=== PATIENT | male | born 1970 | race Caucasian/White ===

== ENCOUNTER 2017-09-29 14:44 | Inpatient (IN) | payer OTHER ==
[2017-09-29] MEDS ORDERED: ceFAZolin IN SWFI 2 GM/20 ML SYRINGE IVP STA (14:53)
[2017-09-29] MEDS ORDERED: DIPH,PERTUS(ACELL)TETVAC-LF 0.5 ML VIAL IM ONE (14:53)
--- NOTE | 2017-09-29 15:15 | XR ---
EXAMINATION TYPE: XR ankle limited RT DATE OF EXAM: 09/29/2017 CLINICAL HISTORY: Twisting injury with pain. Open fracture per order. TECHNIQUE: Frontal and lateral images of the right ankle are obtained. COMPARISON: None. FINDINGS: There is acute comminuted displaced fracture distal fibular diaphysis with several small o ssific fracture fragments. Distal fracture fragment is impacted and posteriorly displaced with abnorm al lateral angulation. There is additional comminuted displaced fracture through the distal tibial diaphysis with slight pos terior displacement as well as lateral and posterior angulation of the distal fracture fragment. The ankle mortise appears within normal limits. Focus of air near level of lateral malleolus is felt present on frontal view. IMPRESSION: There are acute displaced comminuted fractures distal diaphysis of right tibia and fibul a. (Initial encounter closed type post traumatic fracture)
--- NOTE | 2017-09-29 15:30 | ED ---
Lower Extremity Injury HPI - General Chief Complaint: Extremity Injury, Lower Stated Complaint: [facility] - rt ankle injury Time Seen by Provider: 09/29/17 14:46 Source: patient, EMS, RN notes reviewed Mode of arrival: EMS Limitations: no limitations - History of Present Illness Initial Comments: 47-year-old male presented emergency from chief complaint of right leg injury. Patient states she was pulling on a abimael states that it slipped causing his leg to twist and he felt a snap of his leg. Patient was noted to have an open fracture to his leg. States that there was some bleeding. Patient states pain is controlled after pain meds given by EMS. Patient is unsure when his last tetanus was. Denies any other injuries. - Related Data Home Medications Medication Instructions Recorded Confirmed No Known Home Medications 09/29/17 09/29/17 Allergies Allergy/AdvReac Type Severity Reaction Status Date / Time No Known Allergies Allergy Verified 09/29/17 14:55 Review of Systems ROS Statement: Those systems with pertinent positive or pertinent negative responses have been documented in the HPI. ROS Other: All systems not noted in ROS Statement are negative. Past Medical History Past Medical History: No Reported History History of Any Multi-Drug Resistant Organisms: None Reported Past Surgical History: No Surgical Hx Reported Past Psychological History: No Psychological Hx Reported Smoking Status: Current every day smoker Past Alcohol Use History: None Reported Past Drug Use History: None Reported General Exam Limitations: no limitations General appearance: alert, in no apparent distress Respiratory exam: Present: normal lung sounds bilaterally. Absent: respiratory distress, wheezes, rales, rhonchi, stridor Cardiovascular Exam: Present: regular rate, normal rhythm, normal heart sounds. Absent: systolic murmur, diastolic murmur, rubs, gallop, clicks Extremities exam: Present: other (Right lower extremity there is deformity noted , distal pulses present, there is a open wound on the anterior aspect of the lower leg there is mild bleeding noted) Course Vital Signs 09/29/17 14:52 Temperature 99.3 F Pulse Rate 99 Respiratory 18 Rate Blood Pressure 164/63 O2 Sat by Pulse 98 Oximetry Procedures - Orthopedic Splinting/Casting Injury #1 Side: right Lower Extremity Injury Location: short leg, ankle Lower Extremity Immobilizer: posterior splint, synthetic pre-padded splint Medical Decision Making - Medical Decision Making Dr. Desouza Did discuss the case with Dr. Hester in which the patient will be admitted to their service for further treatment. Disposition Clinical Impression: Open fracture of tibia and fibula Disposition: ADMITTED IP TO THIS HOSP Condition: Stable Referrals: None,Stated [Primary Care Provider] - 1-2 days
[2017-09-29] MEDS ORDERED: NALOXONE 0.4 MG/ML 1 ML VIAL IV PRN (15:38)
[2017-09-29] MEDS ORDERED: ONDANSETRON 4 MG/2 ML VIAL IVP PRN (15:38)
[2017-09-29] MEDS ORDERED: HYDROmorphone 1 MG/ML 1 ML SYRINGE IVP PRN (15:38)
--- NOTE | 2017-09-29 16:14 | P.HPOR ---
History of Present Illness H&P Date: 09/29/17 This is a 47-year-old male who presented to the with an open fracture of the right tibia. Patient states that he was pulling on a rope when the rope broke causing him to twist his right ankle. Patient was brought to the via EMS. Patient received a tetanus shot in the today. Patient denies any significant past medical history. Patient has received IV antibiotics and the right tibia has been covered with sterile gauze and splinted. Patient denies any numbness, weakness, tingling, fever/chills, shortness of breath, abdominal pain or chest pain. Review of Systems See HPI. Past Medical History Past Medical History: No Reported History History of Any Multi-Drug Resistant Organisms: None Reported Past Surgical History: No Surgical Hx Reported Past Psychological History: No Psychological Hx Reported Smoking Status: Current every day smoker Past Alcohol Use History: None Reported Past Drug Use History: None Reported Medications and Allergies Home Medications Medication Instructions Recorded Confirmed Type No Known Home Medications 09/29/17 09/29/17 History Allergies Allergy/AdvReac Type Severity Reaction Status Date / Time No Known Allergies Allergy Verified 09/29/17 14:55 Physical Examination On exam patient is lying comfortably in bed in no acute distress. Patient is alert and oriented 3. There is a small open area over the right redd. Capillary refill is normal at less than 2 seconds. Patient is able to move the toes of the right foot without pain or difficulty. Exams of the head, neck, bilateral upper extremities and left lower extremity are within normal limits. Results An x-ray of the right ankle shows displaced comminuted fractures of the distal tibia and distal fibula. Assessment and Plan (1) Open fracture of tibia and fibula Current Visit: Yes Status: Acute Code(s): S82.209B - UNSP FX SHAFT OF UNSP TIBIA, INIT FOR OPN FX TYPE I/2; S82.409B - UNSP FX SHAFT OF UNSP FIBULA, INIT FOR OPN FX TYPE I/2 SNOMED Code(s): 733578311 Plan: 1. Patient is to be NPO. 2. Continue antibiotics and pain control. 3. Maintain splint to right lower extremity. 4. I&D of open fracture and intramedullary nailing of the right tibia scheduled for today pending consent.
[2017-09-29] MEDS: HYDROmorphone 1 MG/ML 1 ML SYRINGE IVP PRN ×2 (16:50→22:46)
[2017-09-29] MEDS ORDERED: HYDROcodone/APAP 5-325MG 1 EACH TAB PO PRN (17:44)
[2017-09-29] MEDS ORDERED: DIAZEPAM 5 MG TAB PO PRN ×2 (17:44)
[2017-09-29] MEDS ORDERED: MAGNESIUM HYDROXIDE 2,400 MG/10 ML CUP PO PRN (17:44)
[2017-09-29] MEDS ORDERED: LIDOCAINE 1% INJ 10MG/ML (20 ML MDV) ONE (17:45)
[2017-09-29] MEDS ORDERED: LACTATED RINGERS 1,000 ML IV ONE ×2 (17:45→19:39)
[2017-09-29] MEDS ORDERED: PROPOFOL 10 MG/ML 20 ML VIAL IV ONE (17:45)
[2017-09-29] MEDS ORDERED: MIDAZOLAM 2 MG/2 ML VIAL ONE (17:45)
[2017-09-29] MEDS ORDERED: fentaNYL (PF) 50 MCG/ML 2 ML AMP ONE (17:45)
[2017-09-29] MEDS ORDERED: ceFAZolin 1,000 MG VIAL IVPB ONE (18:00)
[2017-09-29] MEDS ORDERED: MEPERIDINE 50 MG/ML SYRINGE IVP ONE (18:04)
[2017-09-29] MEDS ORDERED: ceFAZolin 1,000 MG in SODIUM CHLORIDE 0.9% 1,000 ML IRRIGATION ONE ×2 (18:27→19:37)
--- NOTE | 2017-09-29 20:13 | P.OP ---
Date of Procedure: 09/29/17 Preoperative Diagnosis: Grade 1 open fracture right distal tibia and fibula Postoperative Diagnosis: Grade 1 comminuted open fracture right distal tibia and fibula Procedure(s) Performed: Irrigation and debridement of the grade 1 open fracture right distal tibia. Intramedullary rodding right tibia Implants: [employer] trigen nail 10mm x 32 cm Anesthesia: spinal Surgeon: Jose Cruz Hester Blowing Weasand #1: Ama Sheth Estimated Blood Loss (ml): 100 Pathology: none sent Condition: stable Disposition: PACU Indications for Procedure: This is a 47-year-old gentleman that was pulling something at work when the lying gave way and he fell and twisted his right leg. He sustained an open right distal tibia and fibula fracture was brought to the emergency room. After evaluation of the fracture discussing the surgical and nonsurgical treatment options with him and his at length, I recommended an urgent irrigation debridement of the open wound and intramedullary rodding of the tibia. Informed consent was obtained. Operative Findings: The operative findings are consistent with a grade 1 open fracture right distal tibia and fibula. Description of Procedure: Patient was seen in the preoperative area, consent was reviewed, and the operative site was marked with a skin marker. Patient was then given 2 g of Ancef intravenously. Patient was then brought to the operating room and given a spinal anesthetic by the anesthesia department. His right lower extremity was then prepped and draped in usual sterile fashion. Mcadoo timeout was then performed which confirmed the patient's name, surgical site, ALLERGIES, and consent. Procedure began by performing an irrigation debridement of the open wound of the right distal tibia. The proximal 1 cm puncture wound on the medial aspect of the right distal tibia which was opened both proximally and distally. The area was then irrigated and a devitalized tissue was debrided. There did not appear to be any gross contamination. Next attention was then turned to placing the intramedullary melissa. An incision was made on the medial parapatellar aspect of the right knee just medial to the patellar tendon. The insertion site of the melissa was then located with an awl and confirmed with fluoroscopy. A ball-tipped guidewire was inserted and passed distally past the fracture site into the distal fragment. This was confirmed with fluoroscopy. Sequential reaming of the tibia was performed to 1- 1/2 mm over the size of the melissa. The melissa was then measured and appropriate size length and diameter melissa was inserted over the guidewire the fracture was held reduced. Guidewires then removed. 2 screws were then placed proximally using the targeting guide. Next 3 screws were then placed distally using the freehand technique. After all the screws been placed, final fluoroscopic x- rays confirmed reduction of the fracture and placement of the intramedullary melissa. The wounds were then irrigated and closed with 2-0 Vicryl followed by shirley for the skin. A well-padded and molded short-leg splint was then placed. Patient was then transferred recovery room stable condition. Asst. ROBINA Sal was required due the complexity of the surgery and the need for skilled assembler surgical garment.
[2017-09-29] MEDS: SODIUM CHLORIDE 0.9% 1,000 ML IV SCH (21:23)
[2017-09-29] MEDS: SENNOSIDES-DOCUSATE SODIUM 1 EACH TAB PO SCH (21:24)
[2017-09-29] MEDS: HYDROcodone/APAP 5-325MG 1 EACH TAB PO PRN (21:29)
[2017-09-29] MEDS: hydrOXYzine PAMOATE 25 MG CAP PO PRN (21:30)
[2017-09-29 21:49] LABS: Basophils % (A) 0 %; Eosinophils # (A) 0.3 k/uL (0-0.7); Eosinophils % (A) 2 %; HCT 46.6 % (39.0-53.0); HGB 14.7 gm/dL (13.0-17.5); Lymphocytes # (A) 2.1 k/uL (1.0-4.8); Lymphocytes % (A) 14 %; MCH 30.1 pg (25.0-35.0); MCHC 31.6 g/dL (31.0-37.0); MCV 95.4 fL (80.0-100.0); Mean Platelet Volume 7.7; Monocytes # (A) 0.8 k/uL (0-1.0); Monocytes % (A) 5 %; Neutrophils # (A) 11.4 k/uL (1.3-7.7); Neutrophils % (A) 77 %; Platelet Count 180 k/uL (150-450); RBC 4.89 m/uL (4.30-5.90); RDW 13.2 % (11.5-15.5); WBC 14.7 k/uL (3.8-10.6)
[2017-09-29 22:01] LABS: Anion Gap 5 mmol/L; Blood Urea Nitrogen 16 mg/dL (9-20); Calcium 8.7 mg/dL (8.4-10.2); Carbon Dioxide 27 mmol/L (22-30); Chloride 109 mmol/L (98-107); Glucose 104 mg/dL (74-99); Potassium 3.9 mmol/L (3.5-5.1); Sodium 141 mmol/L (137-145)
[2017-09-29] MEDS: NICOTINE 14MG/24HR PATCH TRANSDERM SCH (22:48)
--- NOTE | 2017-09-29 23:06 | XR ---
EXAMINATION TYPE: XR chest 1V portable DATE OF EXAM: 09/29/2017 COMPARISON: NONE HISTORY: Possible pneumonia. Chest pain TECHNIQUE: Single frontal view of the chest is obtained. FINDINGS: Exam is limited by the patient's size. There is no heart failure nor confluent pneumonic i nfiltrate. There is some mild linear density in the left lower lobe. Costophrenic angles are clear. B hussein thorax appears intact. IMPRESSION: Subsegmental atelectasis at the left lung base. Normal heart.
[2017-09-29] MEDS: ceFAZolin IN SWFI 2 GM/20 ML SYRINGE IVP SCH (23:20)
[2017-09-30] MEDS: HYDROmorphone 1 MG/ML 1 ML SYRINGE IVP PRN ×5 (01:28→21:52)
[2017-09-30] MEDS: HYDROcodone/APAP 5-325MG 1 EACH TAB PO PRN ×3 (02:47→21:01)
[2017-09-30] MEDS: hydrOXYzine PAMOATE 25 MG CAP PO PRN ×2 (02:48→21:02)
--- NOTE | 2017-09-30 07:36 | CONS ---
CONSULTATION REASON FOR CONSULTATION: Advice regarding increased WBC and other medical issues requested by Orthopedics. HISTORY OF PRESENT ILLNESS: This 47-year-old gentleman who was previously healthy underwent irrigation and debridement of the grade 1 open fracture of the right distal tibia with intramedullary rodding of the right tibia by Dr. Hester and the patient was admitted for further evaluation and treatment. There is no history of any fever, rigors. No history of headache, loss of consciousness or seizures. No chest pain or palpitation at this time. The patient has some shivering at this time. PAST MEDICAL HISTORY: History of nicotine dependence. No other significant illness. MEDICATIONS: None. ALLERGIES: None. FAMILY HISTORY: No history of heart disease or strokes in the family. SOCIAL HISTORY: History of smoking. No history of alcohol intake. REVIEW OF SYSTEMS: ENT: No diminished hearing or diminished. CARDIOVASCULAR SYSTEM: No angina. RESPIRATORY SYSTEM: No cough or hemoptysis. GI: No nausea or vomiting. : No dysuria. NERVOUS SYSTEM: No numbness or weakness. ALLERGY/IMMUNOLOGY: No asthma or hayfever. MUSCULOSKELETAL: As mentioned earlier. HEMATOLOGY/ONCOLOGY: No history of anemia. ENDOCRINE: No history of diabetes or hypothyroidism. CONSTITUTIONAL: As mentioned earlier. DERMATOLOGY: Negative. RHEUMATOLOGY: Negative. PSYCHIATRY: As mentioned earlier. PHYSICAL EXAMINATION: On physical exam, the patient is alert and oriented. Pulse is 103. Blood pressure is 132/81, respiration 14, temperature 97.8, pulse ox 95% on room air. HEENT: Conjunctivae normal. Oral mucosa moist. NECK: No jugular venous distention. No carotid bruit. No lymph node enlargement. CARDIOVASCULAR: S1 and S2 muffled. RESPIRATORY: Breath sounds are diminished at the bases. No rhonchi, no crackles. ABDOMEN: Soft, nontender. No mass palpable. LEGS: No edema, no swelling. Status post surgery on the right leg. NERVOUS SYSTEM: Higher functions as mentioned earlier. Moves all 4 limbs. No focal motor deficits. LYMPHATICS: No lymphadenopathy of the neck, axillae or groin. SKIN: No ulcer, rash or bleeding. LABS: WBC 14.7, hemoglobin 14.7. Sodium 141, potassium 3.9. ASSESSMENT: 1. Status post irrigation debridement of the grade 1 open fracture of the right distal tibia with intramedullary rodding of the right tibia. 2. Increased WBC. 3. History of nicotine dependence. RECOMMENDATIONS AND DISCUSSION: In this 47-year-old gentleman who presented after surgery, at this time I recommend continue the current medications, continue symptomatic treatment. I recommend to monitor closely. Follow the temperature and I would also recommend a portable chest x- ray and baseline labs and UA with micro also to just complete the workup. Otherwise further recommendations to follow. The elevated WBC could very well be reactive in nature as well. MMODL / IJN: [id number] / DONALD
--- NOTE | 2017-09-30 07:50 | FL ---
EXAMINATION TYPE: FL guidance operating room DATE OF EXAM: 09/29/2017 HISTORY: Flouroscopy time 1 minute and 32 seconds of fluoroscopy provided. IMPRESSION: 1. Fluoroscopy time.
--- NOTE | 2017-09-30 08:00 | XR ---
EXAMINATION TYPE: XR tibia fibula RT DATE OF EXAM: 09/29/2017 COMPARISON: NONE HISTORY: Postop TECHNIQUE: One view submitted FINDINGS: Postsurgical changes appear in near anatomic alignment. IMPRESSION: Postop
--- NOTE | 2017-09-30 08:41 | P.CNOR ---
History of Present Illness - HPI Consult date: 09/30/17 History of present illness: This is a 47-year-old male who is status post irrigation and debridement of grade 1 open fracture of the right distal tibia and intramedullary rodding of the right tibia. Today patient complains of soreness in the right leg, but states that his pain is controlled with pain medication. The patient's splint had been reinforced overnight due to drainage. Patient denies any fever/chills, numbness, weakness, tingling, abdominal pain, shortness of breath or chest pain. Review of Systems See HPI. Past Medical History Past Medical History: No Reported History History of Any Multi-Drug Resistant Organisms: None Reported Past Surgical History: No Surgical Hx Reported Additional Past Surgical History / Comment(s): tooth extractions Past Anesthesia/Blood Transfusion Reactions: No Reported Reaction Smoking Status: Current every day smoker - Past Family History Father Family Medical History: Diabetes Mellitus Mother Family Medical History: No Reported History Medications and Allergies Home Medications Medication Instructions Recorded Confirmed Type No Known Home Medications 09/29/17 09/29/17 History Allergies Allergy/AdvReac Type Severity Reaction Status Date / Time No Known Allergies Allergy Verified 09/29/17 14:55 Physical Examination On exam patient is alert and oriented 3 lying comfortably in bed in no acute distress. Splint is intact to the right lower extremity. Patient is able to wiggle the toes of the right foot. Capillary refill is normal at less than 2 seconds. Right lower extremity is warm and well perfused. Neurovascular status and circulatory status are intact. Results - Labs Labs: Abnormal Lab Results - Last 24 Hours (Table) 09/29/17 09/29/17 Range/Units 21:35 21:35 WBC 14.7 H (3.8-10.6) k/uL Neutrophils # 11.4 H (1.3-7.7) k/uL Chloride 109 H (98-107) mmol/L Glucose 104 H (74-99) mg/dL H & H 09/29/17 Range/Units 21:35 Hgb 14.7 (13.0-17.5) gm/dL Hct 46.6 (39.0-53.0) % Result Diagrams: 09/29/17 21:35 09/29/17 21:35 Assessment and Plan (1) Open fracture of tibia and fibula Current Visit: Yes Status: Acute Code(s): S82.209B - UNSP FX SHAFT OF UNSP TIBIA, INIT FOR OPN FX TYPE I/2; S82.409B - UNSP FX SHAFT OF UNSP FIBULA, INIT FOR OPN FX TYPE I/2 SNOMED Code(s): 396095071 Plan: 1. Patient is status post irrigation and debridement of grade 1 open fracture of the right distal tibia and intramedullary rodding of the right tibia. 2. Nonweightbearing to the right lower extremity. 3. Continue routine postoperative care and pain control. 4. Maintain splint to right lower extremity. Reinforce as necessary. 5. DVT prophylaxis with Xarelto. 6. Anticipate discharge home tomorrow with oral antibiotics and premium equalizer boot.
[2017-09-30 09:00] LABS: Anion Gap 7 mmol/L; Blood Urea Nitrogen 14 mg/dL (9-20); Calcium 8.5 mg/dL (8.4-10.2); Carbon Dioxide 24 mmol/L (22-30); Chloride 107 mmol/L (98-107); Glucose 115 mg/dL (74-99); Potassium 4.2 mmol/L (3.5-5.1); Sodium 138 mmol/L (137-145)
[2017-09-30] MEDS: NICOTINE 14MG/24HR PATCH TRANSDERM SCH (09:10)
[2017-09-30] MEDS: ceFAZolin IN SWFI 2 GM/20 ML SYRINGE IVP SCH (09:10)
[2017-09-30] MEDS: RIVAROXABAN 10 MG TAB PO SCH (09:10)
[2017-09-30 09:16] LABS: Appearance,Urine Clear (Clear); Bilirubin,Urine Negative (Negative); Blood,Urine Negative (Negative); Color,Urine Yellow; Glucose,Urine (UA) Negative (Negative); Ketones,Urine Negative (Negative); Leukocyte Esterase,Urine Negative (Negative); Nitrite,Urine Negative (Negative); PH, Urine 6.5 (5.0-8.0); Protein,Urine Negative (Negative); Specific Gravity,Urine 1.015 (1.001-1.035); Urobilinogen,Urine <2.0 mg/dL (<2.0)
[2017-09-30] MEDS: SODIUM CHLORIDE 0.9% 1,000 ML IV SCH (09:19)
--- NOTE | 2017-09-30 15:09 | PN ---
PROGRESS NOTE DATE OF SERVICE: 09/30/2017. This 47-year-old gentleman who was admitted after irrigation debridement of the open fracture of the right distal tibia is being closely monitored. Orthopedics following the patient closely. No chest pain. No palpitations. No fever. PHYSICAL EXAM: Alert and oriented x3. Pulse 96, blood pressure 130/62, respiration 18, temperature 98.2, pulse ox 94% on room air. HEENT: Conjunctivae normal. Oral mucosa moist. NECK: No jugular venous distention. No carotid bruit. No lymph node enlargement. CARDIOVASCULAR: S1, S2. RESPIRATORY: Breath sounds diminished in the bases. No rhonchi, no crackles. ABDOMEN: Soft. LEGS: Status post right leg surgery. NERVOUS SYSTEM: No focal deficits. LABS: WBC 14.7. The BMP within normal limits. ASSESSMENT: 1. Status post irrigation debridement of the grade 1 open fracture right distal tibia with intramedullary rodding of the right tibia. 2. Increased WBC. 3. History of nicotine dependence. RECOMMENDATIONS AND DISCUSSION: I recommend to continue current management and recommend incentive spirometry, DVT prophylaxis. Closely follow. Otherwise the patient is on Xarelto. Continue to monitor, repeat CBC is recommended and monitor closely. Further recommendations to follow. MMODL / IJN: [id number] /
[2017-09-30] MEDS: SENNOSIDES-DOCUSATE SODIUM 1 EACH TAB PO SCH (20:59)
[2017-10-01] MEDS: SODIUM CHLORIDE 0.9% 1,000 ML IV SCH (01:21)
[2017-10-01] MEDS: HYDROcodone/APAP 5-325MG 1 EACH TAB PO PRN (02:41)
[2017-10-01] MEDS: hydrOXYzine PAMOATE 25 MG CAP PO PRN (02:41)
[2017-10-01] MEDS: HYDROmorphone 1 MG/ML 1 ML SYRINGE IVP PRN ×2 (03:22→13:12)
[2017-10-01 07:43] LABS: Basophils % (A) 0 %; Eosinophils # (A) 0.2 k/uL (0-0.7); Eosinophils % (A) 2 %; HCT 43.5 % (39.0-53.0); HGB 14.3 gm/dL (13.0-17.5); Lymphocytes # (A) 2.2 k/uL (1.0-4.8); Lymphocytes % (A) 20 %; MCH 31.1 pg (25.0-35.0); MCHC 32.8 g/dL (31.0-37.0); MCV 94.6 fL (80.0-100.0); Mean Platelet Volume 8.2; Monocytes # (A) 0.8 k/uL (0-1.0); Monocytes % (A) 7 %; Neutrophils # (A) 7.9 k/uL (1.3-7.7); Neutrophils % (A) 69 %; Platelet Count 160 k/uL (150-450); RBC 4.59 m/uL (4.30-5.90); RDW 12.8 % (11.5-15.5); WBC 11.4 k/uL (3.8-10.6)
[2017-10-01] MEDS: NICOTINE 14MG/24HR PATCH TRANSDERM SCH (08:06)
[2017-10-01] MEDS: RIVAROXABAN 10 MG TAB PO SCH (08:06)
[2017-10-01] MEDS ORDERED: HYDROcodone/APAP 7.5-325MG 1 EACH TAB PO PRN (08:23)
[2017-10-01] MEDS: HYDROcodone/APAP 7.5-325MG 1 EACH TAB PO PRN ×2 (08:41→14:42)
--- NOTE | 2017-10-01 08:42 | P.DS ---
Providers Date of admission: 09/29/17 15:38 Attending physician: Jose Cruz Hester Consults: 09/29/17 17:44 Consult Physician Routine Consulting Provider: Zina Stephens Consult Reason/Comments: medical management Do you want consulting provider notified?: Yes Primary care physician: Stated None - Discharge Diagnosis(es) (1) Open fracture of tibia and fibula Current Visit: Yes Status: Acute Hospital Course: This is a 47-year-old male who sustained a grade 1 comminuted open fracture of the right distal tibia and fibula at work. Patient was pulling on a rope when the rope broke causing him to fall and twist the right leg. The patient presents for evaluation in the emergency room. After discussion and consideration patient elects to proceed with irrigation and debridement of the grade 1 open fracture right distal tibia and intramedullary rodding of the right tibia. The patient is seen preoperatively by Dr. Hester. Patient is admitted to [facility] on 09/29/2017 for irrigation and debridement of the grade 1 open fracture right distal tibia and intramedullary rodding of the right tibia. The procedures performed without complication or sequelae. The patient is doing well postoperatively. Labs and vital signs are stable on day of discharge. On day of discharge patient's incisions are healing well. There is minimal erythema. There is mild drainage noted at this time. There is minimal soft tissue swelling to the right lower leg. Neurovascular status to the right lower extremity is intact. Patient is discharged home in good condition. Please see med rec for accurate list of home medications. Patient Condition at Discharge: Stable Plan - Discharge Summary Discharge Rx Participant: No New Discharge Prescriptions: New Cephalexin [Keflex] 500 mg PO Q6H 10 Days #40 cap HYDROcodone/APAP 7.5-325MG [[place] 7.5-325] 1 - 2 tab PO Q4-6H PRN #84 tab PRN Reason: Pain Rivaroxaban [Xarelto] 10 mg PO DAILY #30 tab Sennosides [Senokot] 1 tab PO BID #60 tablet Discharge Medication List Cephalexin [Keflex] 500 mg PO Q6H 10 Days #40 cap 10/01/17 [Rx] HYDROcodone/APAP 7.5-325MG [[place] 7.5-325] 1 - 2 tab PO Q4-6H PRN #84 tab 08/23/ 18 [Rx] Rivaroxaban [Xarelto] 10 mg PO DAILY #30 tab 10/01/17 [Rx] Sennosides [Senokot] 1 tab PO BID #60 tablet 10/01/17 [Rx] Follow up Appointment(s)/Referral(s): None,Stated [Primary Care Provider] - 1-2 days Jose Cruz Hester DO [Doctor of Osteopathic Medicine] - 1 Week Ambulatory/Diagnostic Orders: Crutches [DME.AMB1] Time Frame: 3 Months, Location: None Selected Walker w/ Wheels [DME.AMB1] Time Frame: 3 Months, Location: None Selected Activity/Diet/Wound Care/Special Instructions: Strictly nonweightbearing to the right lower extremity with a walker or crutches. Maintain boot to the right lower extremity. Daily dressing changes. Alicia to be removed in 10-14 days. Please finish entire course of antibiotics. Please take medications as prescribed. Please follow-up with [facility] in one week. Please call with any questions or concerns, [phone]. Discharge Disposition: HOME SELF-CARE
[2017-10-01 14:45] VITALS: BP 135/75; PULSE 89; RESP 16; TEMP 99
--- NOTE | 2017-10-01 16:07 | PN ---
PROGRESS NOTE DATE OF SERVICE: 10/01/2017. INTERVAL HISTORY: This 47-year-old gentleman who was admitted after irrigation and debridement Grade 1 open fracture is being closely monitored. No chest pain. No palpitations. No fever. PHYSICAL EXAM: Alert and oriented times three. Pulse 96, blood pressure 131/62, respiration 18, temperature 98 degrees, pulse ox 98 percent on room air. HEENT: Conjunctivae normal. Oral mucosa moist. Neck is no jugular venous distention. No carotid bruit. No lymph node enlargement. Cardiovascular: S1, S2. No S3, no S4. RESPIRATORY: Breath sounds diminished in the bases. No rhonchi and no crackles. ABDOMEN: Soft. Nontender. Legs status post surgery. Central nervous system: No focal deficits. LABS: WBC 11.4. ASSESSMENT: 1. Status post irrigation and debridement of the grade 1 open fracture right distal tibia with intramedullary rodding of the right tibia. 2. Increased WBC possibly reactive, improving. 3. History of nicotine dependence. RECOMMENDATIONS AND DISCUSSION: I recommend to continue current medications, management and symptomatic treatment. Continue with DVT prophylaxis. Follow closely with primary physician and orthopedics surgery. Rest of the recommendations per Orthopedic surgery. Further recommendations to follow. MMODL / IJN: [id number] /
--- NOTE | 2017-10-02 11:43 | CDI ---
Last Revision, January 2017 Documentation Clarification Form Date: 10/02/17 From: Noa Chau Rain Dye, Wedger Hours-8:30 am & 5 pm Ubaldo Admit Date: 09/29/2017 3:38:00 PM Patient Name: Ayaan Baugh Visit Number: [id number] Discharge Date: 10/01/17 ATTENTION: The Clinical Documentation Specialists (CDI) and [facility] Coding Staff appreciate your assistance in clarifying documentation. Please respond to the clarification below the line at the bottom and electronically sign. The CDI & [facility] Coding staff will review the response and follow-up if needed. Please note: Queries are made part of the Legal Health Record. If you have any questions, please contact the author of this message via ITS. Jose Cruz Prabhakar , DO Per your operative note, an irrigation and debridement was performed of the open wound of the right distal tibia. "The area was then irrigated and devitalized tisuse was debrided." In order to capture the severity of condition and code the appropriate procedure ; could you please document the following: Excisional debridement (the removal of necrotic, devitalized tissue or slough by means of cutting away of tissue) Non-excisional debridement (the removal of necrotic, devitalized tissue or slough by means of flushing, brushing, or washing. (Irrigation) Other; please specify Unable to determine (no explanation for clinical findings) Please continue to document in your progress notes and discharge summary in order to capture severity of illness and risk of mortality. Include clinical findings that support your diagnosis. Excisional MTDD
== END 2017-10-01 17:35 | disposition home or self-care (01) | DRG 465 ==
LOC: EC 14:44 → 5MS5E 15:38
PROVIDERS: ADMIT Orthopaedic Surgery; ATTEND Orthopaedic Surgery
PROC: 0JBQ0ZZ Excision of Right Foot Subcutaneous Tissue and Fascia, Open Approach (ICD-10-PCS; 2017-09-29)
PROC: 0QHG36Z Insertion of Intramedullary Internal Fixation Device into Right Tibia, Percutaneous Approach (ICD-10-PCS; principal; 2017-09-29 12:35)
DX: S82.251B Displaced comminuted fracture of shaft of right tibia, initial encounter for open fracture type I or II (principal); S82.451B Displaced comminuted fracture of shaft of right fibula, initial encounter for open fracture type I or II; X50.1XXA Overexertion from prolonged static or awkward postures, initial encounter; F17.210 Nicotine dependence, cigarettes, uncomplicated; Z83.3 Family history of diabetes mellitus
CPT/HCPCS: 71045; 80048; 81003; 85025; 90471; 90715; 96374; 96375; 99284